=== PATIENT | female | born 1995 | race Caucasian/White ===

== ENCOUNTER 2023-08-31 17:12 | Emergency (ER) | payer OTHER ==
[~2023-08-31] VITALS: Ht 157.5 cm; Wt 56.7 kg
[2023-08-31] MEDS ORDERED: HYDR-4209 PO (22:49)
[2023-08-31] MEDS ORDERED: NAPR500T6 PO (22:49)
[2023-08-31] MEDS ORDERED: KETOROLAC TROMETHAMINE 30 MG INJ ONE (23:17)
[2023-08-31] MEDS: KETOROLAC TROMETHAMINE 30 MG INJ IM ONE (23:20)
[2023-08-31 23:32] VITALS: BP 133/81; TEMP 98.5; O2SAT 99
== END 2023-08-31 23:25 | disposition home or self-care (01) ==
LOC: ER 17:34
DX: R07.81 Pleurodynia (principal); J20.9 Acute bronchitis, unspecified; R03.0 Elevated blood-pressure reading, without diagnosis of hypertension; R05.9 Cough, unspecified; F41.9 Anxiety disorder, unspecified; F32.A Depression, unspecified; Z79.899 Other long term (current) drug therapy
CPT/HCPCS: 99283; 71101; 96372; J1885; A4606; A4663